=== PATIENT | male | born 1975 | race Two or more races ===

== ENCOUNTER 2024-01-14 18:39 | Emergency (ER) | payer MEDICAID ==
[~2024-01-14] VITALS: Ht 167.6 cm; Wt 92.4 kg
[2024-01-14 18:39] VITALS: TEMP 98.1
[~2024-01-14 18:39] MED LIST: ACET500T58 PO; CEPH250C PO; IBUP-1454 PO
[2024-01-14 18:58] VITALS: BP 127/78; PULSE 72; RESP 16; O2SAT 98
[2024-01-14] MEDS: TETANUS-DIPTH-ACEL PERTUSSIS 0.5ML SYR Tdap IM ONE (22:23)
== END 2024-01-14 22:40 | disposition home or self-care (01) ==
LOC: ER 18:39
DX: S61.012D Laceration without foreign body of left thumb without damage to nail, subsequent encounter (principal); Z79.899 Other long term (current) drug therapy; X58.XXXD Exposure to other specified factors, subsequent encounter
CPT/HCPCS: 90471; 90715

== ENCOUNTER 2024-04-25 08:34 | Emergency (ER) | payer MEDICAID ==
[~2024-04-25] VITALS: Ht 180.3 cm; Wt 96.2 kg
[2024-04-25] MEDS: KETOROLAC TROMETH 60MG/2ML VIAL IM ONE (09:30)
[2024-04-25 09:42] VITALS: BP 125/77; PULSE 84; RESP 16; TEMP 97.9; O2SAT 99
[2024-04-25] MEDS ORDERED: BACL10TA PO (09:54)
[2024-04-25] MEDS ORDERED: IBUP-1456 PO (09:54)
== END 2024-04-25 10:04 | disposition home or self-care (01) ==
LOC: ER 08:34
DX: S39.012A Strain of muscle, fascia and tendon of lower back, initial encounter (principal); Z79.899 Other long term (current) drug therapy; X50.1XXA Overexertion from prolonged static or awkward postures, initial encounter; Y93.89 Activity, other specified; Y92.89 Other specified places as the place of occurrence of the external cause; Y99.8 Other external cause status
CPT/HCPCS: 72100; 96372; 99283; J1885